=== PATIENT | female | born 1965 | race Caucasian/White ===

== ENCOUNTER → 2019-02-12 | Outpatient (CLI) | payer OTHER ==
[~2019-02-12] MED LIST: AMLODIPINE BESYL5 MG PO; GLIMEPIRIDE2 MG PO; JANUMET PO; LEVEMIR100 UNIT/1 SQ; LEVOTHYROXINE50 MCG PO; OMEPRAZOLE PO; PRAVASTATIN SOD40 MG PO; RANITIDINE HCL150 MG PO; TRIAMTERENE-HCTZ1 EA PO
--- NOTE | 2019-02-15 08:39 | Diagnostic Imaging Report ---
#[id number] - MGSCRBIL #BILATERAL DIGITAL SCREENING MAMMOGRAM WITH CAD: 02/12/2019 CLINICAL: Routine screening. Comparison is made to exams dated: 02/21/2017 mammogram and 06/09/2015 mammogram - [facility]. Current study contains 8 films. The tissue of both breasts is predominantly fatty. Current study was also evaluated with a Computer Aided Detection (CAD) system. There are benign calcifications in both breasts. There also is a benign mass in the left breast which appears unchanged. No significant masses, calcifications, or other findings are seen in either breast. IMPRESSION: BENIGN There is no mammographic evidence of malignancy. A 1 year screening mammogram is recommended. The patient will be notified by letter of the results. BAILEY ROMERO M.D. ct/:02/12/2019 16:52:49 Poker Machine Attendant: Carrie RAM)([place]), [facility] letter sent: Normal Exam Mammogram BI-RADS: 2 Benign
== END ==
LOC: MAMMO 07:53
PROVIDERS: ATTEND Family Medicine
DX: Z12.31 Encounter for screening mammogram for malignant neoplasm of breast (principal)
CPT/HCPCS: 77067

== ENCOUNTER → 2021-10-29 | Outpatient (CLI) | payer BC | LOC: MAMMO 12:21 | PROVIDERS: ATTEND Family Medicine | DX: Z12.31 Encounter for screening mammogram for malignant neoplasm of breast (principal) | CPT/HCPCS: 77067 ==

== ENCOUNTER → 2022-11-08 | Outpatient (CLI) | payer BC | LOC: MAMMO 08:35 | PROVIDERS: ATTEND Family Medicine | DX: Z12.31 Encounter for screening mammogram for malignant neoplasm of breast (principal) | CPT/HCPCS: 77067 ==

== ENCOUNTER → 2025-01-10 | Outpatient (REF) | payer BC ==
[~2025-01-10] MED LIST changes: +ASPIRIN81 MG PO; +BENEFIBER1 EAC1 PO; +JARDIANCE10 MG PO; +LOSARTAN POTASS25 MG PO; +PANTOPRAZOLE SO40 MG PO; +TOUJEO MAX300 UNIT/1 SC
== END ==
LOC: MAMMO 14:36
PROVIDERS: ATTEND Nurse Practitioner Primary Care
DX: Z12.31 Encounter for screening mammogram for malignant neoplasm of breast (principal); Z13.820 Encounter for screening for osteoporosis
CPT/HCPCS: 77067; 77080